=== PATIENT | female | born 1980 ===

== ENCOUNTER 2021-11-23 12:39 | Emergency (ER) | payer BC ==
[~2021-11-23] VITALS: Ht 162.6 cm; Wt 106.6 kg
[2021-11-23] MEDS ORDERED: CEPH500 PO (15:33)
[2021-11-23] MEDS ORDERED: SULTRIDS PO (15:33)
[2021-11-23] MEDS ORDERED: IBUP600 PO (15:34)
== END 2021-11-23 15:53 | disposition home or self-care (01) ==
LOC: ER 12:39
DX: L02.416 Cutaneous abscess of left lower limb (principal); Z88.0 Allergy status to penicillin
CPT/HCPCS: 10060; 87070; 87075; 87205; 99283

== ENCOUNTER 2022-03-01 07:04 | Emergency (ER) | payer BC ==
[~2022-03-01] VITALS: Ht 162.6 cm; Wt 99.8 kg
[~2022-03-01 07:04] MED LIST: CEPH500 PO; IBUP600 PO; SULTRIDS PO
[2022-03-01] MEDS ORDERED: PRENATAL TABLE1 EAC2 (07:25)
[2022-03-01 08:04] LABS: BASOPHILS ABSOLUTE AUTO 0.03 K/mm3 (0.00-0.23); BASOPHILS PERCENT AUTO 0 % (0-2); EOSINOPHILS ABSOLUTE AUTO 0.25 K/mm3 (0.00-0.68); EOSINOPHILS PERCENT AUTO 3 % (0-6); Hematocrit 39.6 % (33.0-51.0); Hemoglobin 13.2 g/dL (11.5-16.0); IMMATURE GRAN ABSOLUTE AUTO 0.03 K/mm3 (0.00-0.10); IMMATURE GRAN PERCENT AUTO 0 % (0-1); LYMPHOCYTES ABSOLUTE AUTO 1.58 K/mm3 (0.84-5.20); LYMPHOCYTES PERCENT AUTO 18 % (21-46); MONOCYTES ABSOLUTE AUTO 0.52 K/mm3 (0.16-1.47); MONOCYTES PERCENT AUTO 6 % (4-13); Mean Corpuscular HGB 30.1 pg (26.0-34.0); Mean Corpuscular HGB Conc 33.3 g/dL (31.5-36.5); Mean Corpuscular Volume 90 fL (80-100); Mean Platelet Volume 10.5 fL (9.1-12.4); NEUTROPHILS ABSOLUTE AUTO 6.52 K/mm3 (1.96-9.15); NEUTROPHILS PERCENT AUTO 73 % (41-73); Platelet Count 279 K/mm3 (150-400); RDW Coefficient Variation 13.1 % (11.7-14.2); RDW Standard Deviation 43.7 fL (35.1-46.3); Red Blood Cell Count 4.38 M/mm3 (3.80-5.20); White Blood Cell Count 8.93 K/mm3 (4.00-11.30)
[2022-03-01 08:21] LABS: Anion Gap 5 mmol/L (6-16); Blood Urea Nitrogen 13 mg/dL (8-24); Bun/Creatinine Ratio 18.7 (12.0-20.0); CO2, Blood 23 mmol/L (21-32); Calcium, Blood 8.5 mg/dL (8.5-10.1); Chloride, Blood 112 mmol/L (98-108); Glomerular Filtration Rate >60 (60-); Glucose, Blood 107 mg/dL (70-99); Potassium, Blood 4.5 mmol/L (3.5-5.5); Sodium, Blood 140 mmol/L (136-145)
[2022-03-01] MEDS ORDERED: METO10 PO (08:46)
== END 2022-03-01 09:46 | disposition home or self-care (01) ==
LOC: ER 07:04
PROVIDERS: Emergency Medicine
DX: R51.9 Headache, unspecified (principal); R11.2 Nausea with vomiting, unspecified; Z88.0 Allergy status to penicillin
CPT/HCPCS: 36415; 80048; 83735; 85025; 96374; 96375; 99284-25; J1200; J1885; J2765; J7030